=== PATIENT | male | born 1995 | race Caucasian/White ===

== ENCOUNTER 2016-10-18 17:55 | Emergency (ER) | payer OTHER ==
--- NOTE | 2016-10-18 18:37 | DIAGNOSTIC IMAGING REPORT ---
PROCEDURE: CT CERVICAL SPINE W/O CONTRAST CLINICAL INDICATION: TRAUMA/INJURY TECHNIQUE: Noncontrast axial images with sagittal and coronal reformations. COMPARISON: None. FINDINGS: Normal alignment without fracture. Normal disc spaces. No foraminal or spinal stenosis. Paraspinal soft tissues are unremarkable. Lung apices are clear. IMPRESSION: 1. Negative CT cervical spine 2. Results discussed with Selena Aguirre All CT scans at this facility use dose modulation, iterative reconstruction, and/or weight-based dosing when appropriate to reduce radiation dose to as low as reasonably achievable.
--- NOTE | 2016-10-18 18:37 | DIAGNOSTIC IMAGING REPORT ---
PROCEDURE: CT HEAD WITHOUT CONTRAST INDICATION: TRAUMA/INJURY TECHNIQUE: Noncontrast axial images with sagittal and coronal reformations. COMPARISON: None. FINDINGS: Sulci, ventricular system, and brain parenchyma are normal. Cavum septum pellucidum, a normal variant. No evidence of acute intracranial process. Visualized mastoids and sinuses are clear. IMPRESSION: 1. Negative non-enhanced head CT. 2. Findings discussed with Selena Aguirre at 06:34 p.m.[facility] Standard Time
--- NOTE | 2016-10-18 18:37 | DIAGNOSTIC IMAGING REPORT ---
PROCEDURE: CT HEAD WITHOUT CONTRAST INDICATION: TRAUMA/INJURY TECHNIQUE: Noncontrast axial images with sagittal and coronal reformations. COMPARISON: None. FINDINGS: Sulci, ventricular system, and brain parenchyma are normal. Cavum septum pellucidum, a normal variant. No evidence of acute intracranial process. Visualized mastoids and sinuses are clear. IMPRESSION: 1. Negative non-enhanced head CT. 2. Findings discussed with Selena Aguirre at 06:34 p.m.[facility] Standard Time
--- NOTE | 2016-10-18 19:17 | ED NURSING NOTES ---
Clinical Report - Nurses [facility] [place] [address] 10/18/2016 17:55 Patient: EMILIE DONAHUE TRIAGE Triage time 18:05 Oct 18 2016. Acuity: LEVEL 3. Chief Complaint: INJURY TO HEAD. Alert. EBONI COMA SCORE: Eboni Coma Scale: 15- eyes open spontaneously (4); best verbal response- oriented x 4 (5); best motor response- obeys commands (6). --18:19 Dano Denney R.N. 18:19 10/18/16. BP: 140/87. RR: 16. O2 saturation: 100%. Pain level now: 310. Additional comments: Head and (R) upper arm. --18:23 Dano Denney R.N. 18:19. --20:19 Dano Denney R.N. 20:18 10/18/16. HR: 88. --20:19 Dano Denney R.N. <<STRICKEN ENTRY-- 18:19. --20:20 Dano Denney R.N. --END STRIKE>> Correction --20:20 Dano Denney R.N. <<STRICKEN ENTRY-- 20:19 10/18/16. HR: 88. --20:20 Dano Denney R.N. --END STRIKE>> Correction. --20:20 Dano Denney R.N. <<STRICKEN ENTRY-- 18:19 10/18/16. HR: 86. --20:21 Dano Denney R.N. --END STRIKE>> Correction. --20:22 Dano Denney R.N. Weight: 75.7 kg measured. Height/Length: 72 inches. BMI: 22.7. --18:17 Dano Denney R.N. Medications Zyrtec, PRN. --20:17 Dano Denney R.N. Medication/allergy information source: the patient. --18:19 Dano Denney R.N. Allergies No Known Drug Allergy. --18:15 Dano Denney R.N. History Arrived by private vehicle. Historian: patient. Accompanied by family. Primary physician ([facility]). ( Head Injury after falling 6 feet from a ladder. Pt states that he fell to soil. Also injured his (R) upper arm. Seen at the [facility] today and they sent him here to be evaluated because of his continuing blurred vision.). This occurred yesterday. Mechanism of injury: fell. The patient had loss of consciousness. (pt denies but states that he had trouble focusing his mentation for 1/2 hour.). 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 PAST MEDICAL HX: Tetanus status: unknown. Immunizations: status is unknown. SURGERY HX: No history of previous surgery. FALL RISK ASSESSMENT: Fall risk assessment completed. No fall risk identified. NUTRITIONAL RISK ASSESSMENT: The nutritional risk assessment revealed no deficiencies. FUNCTIONAL ASSESSMENT: Functional assessment: no impairments noted. LEARNING NEEDS ASSESSMENT: The learning needs assessment revealed no barriers. --18:19 Dano Denney R.N. PROBLEMS: Migraine Headache. --18:16 Dano Denney R.N. ADDITIONAL SURGERIES: no known surgeries. Interventions ID band on patient. To treatment room. --18:19 Dano Denney R.N. PHYSICAL ASSESSMENT Ambulatory to room. GENERAL / NEURO / PSYCH: Alert. Appears in pain. HEENT: Head: abrasion present in the left forehead. Mouth within normal limits upon inspection. Voice within normal limits. No dental injury noted. Mucous membranes are pink. RESPIRATORY: Respirations not labored. CVS: Capillary refill less than 2 seconds. BACK: Vertebral point tenderness over the cervical spine ((R)). SKIN: Skin is warm and dry. --18:27 Dano Denney R.N. NURSING PROGRESS NOTES 18:15 10/18/2016 TDAP IM 0.5 mL given. (Lot#: [id number], expiration date: 09/21/2018, Consulting Solution Manager: sanofi pasteur). Given in the right deltoid. Allergies verified and confirmed 5 rights. Vaccine information statement provided to the patient. --18:15 Klever Martinez R.N. Reassurance given. Patient identifiers checked. Call light placed in reach. Side rails up. Bed placed in lowest position. Brakes of bed on. Patient ready for evaluation- chart flagged and ED physician notified. --18:27 Dano Denney R.N. 18:13 10/18/2016 Site #1 started via IV in the left antecubital space with an 18g angiocath, with aseptic technique and good blood return; one attempt. Blood drawn: rainbow set. Labeled in the presence of the patient and sent to the lab. Saline lock flushed with 10 mL saline. --18:28 Dano Denney R.N. 18:20 10/18/16. Patient transported to CT by stretcher with tech. --18:33 Dano Denney R.N. 18:30. Patient returned from CT by stretcher with tech. --18:33 Dano Denney R.N. 19:18 10/18/16. BP: 126/77. HR: 75. RR: 16. O2 saturation: 99% on room air. Pain level now: 6/10. Additional comments: Head pain. --19:19 Dano Denney R.N. 19:23 10/18/2016 K-DUR (Potassium Chloride Debora ER) PO Tablets 40 meq given. Allergies verified and confirmed 5 rights. --19:23 Dano Denney R.N. DISPOSITION / DISCHARGE 19:30 10/18/16. BP: 128/75. HR: 79 (regular and normal rate). RR: 17. O2 saturation: 99% on room air. Temp: 98.2 F. Pain level now: 7/10. Additional comments: Head pain. --20:12 Dano Denney R.N. Departure time: 1939. --20:12 Dano Denney R.N. 19:40. Condition at departure: improved. No learning barriers present. Reviewed warnings (Have someone check on your mental status every two hours checking for changes.). Reviewed medication(s) dosing information (prescription given to pt). Reviewed referral to family practice for followup. Patient verbalized understanding. Written instructions provided in Maori. The patient was discharged by the nurse practitioner. He was discharged home and accompanied by group account director. He left the Emergency Department ambulatory and via private vehicle. Purchasing Intern driving. FALL RISK ASSESSMENT: Fall risk assessment completed. No fall risk identified. --20:15 Dano Denney R.N. Locked/Released at 10/18/2016 20:26 by Dano Denney R.N.
--- NOTE | 2016-10-18 19:17 | ED CLINICAL REPORT ---
Clinical Report - Physicians/Mid Levels [facility] [address] [place] [address] 10/18/2016 17:55 Patient: EMILIE DONAHUE Time Seen: 1806; upon arrival, initial patient contact, initial documentation, patient care assumed. Arrived- By private vehicle. Historian- patient. HISTORY OF PRESENT ILLNESS Chief Complaint: FALL. Location of injuries- head, face, right arm and left leg. The injury occurred yesterday. Fell 5-6 feet off a ladder while standing and landed on the ground; slipped. Occurred at home. The patient complains of mild pain. The patient sustained a blow to the head and complains of neck pain. No loss of consciousness or seizure. Not dazed. (went to [facility], sent here for further eval). REVIEW OF SYSTEMS No numbness, dizziness, loss of vision, difficulty breathing or weakness. No headache, laceration or vomiting. He has no pain on weight bearing. All systems otherwise negative, except as recorded above. PAST HISTORY See nurses notes. PROBLEMS: Migraine Headache. --18:16 Dano Denney R.N. Tetanus immunization status is unknown. SOCIAL HISTORY Never smoker. No alcohol use or drug use. No recent travel. Is a local resident. FAMILY HISTORY No significant family medical history. ADDITIONAL NOTES The nursing notes have been reviewed with agreement regarding the chief complaint, HPI, ROS, PMH and patient medications and allergies. PHYSICAL EXAM Vital Signs: 10/18/2016 18:19 BP: 140/87. RR: 16. O2 saturation: 100%. Pain level now: 3/10. Have been reviewed as normal and appear to be correct. Appearance: Alert. Oriented X3. No acute distress. Head: Head non-tender. No swelling of head. Forehead: small abrasion of the upper central forehead. No erythema, tenderness, swelling, laceration or ecchymosis. No puncture wound, foreign body or deformity. Eyes: Pupils equal, round and reactive to light. EOM intact. ENT: No dental injury. Pharynx normal. Neck: Painful ROM in the neck. Pain in the neck upon movement. No decreased ROM or muscle spasm in the neck. Tenderness present. Mild vertebral tenderness of the mid and lower cervical spine. CVS: Heart sounds normal. Pulses normal. Respiratory: Breath sounds normal. Chest nontender. Abdomen: No visible injury. Soft and nontender. Back: No tenderness. ROM normal. Skin: Skin intact. Skin warm and dry. Normal skin color. Normal skin turgor. Extremities: Normal inspection. Right arm: small abrasion located in the medial aspect of arm. Neurovascular intact distally. No erythema, tenderness, swelling, laceration or ecchymosis. No puncture wound, foreign body or deformity. Pelvis stable. Left leg: small abrasion located in the anterior aspect of mid leg. Neurovascular intact distally. No erythema, tenderness, swelling, laceration or ecchymosis. No puncture wound, foreign body or deformity. No limitation of weight bearing. Extremities atraumatic. No lower extremity edema. Neuro: Oriented X 3. No motor deficit. No sensory deficit. LABS, X-RAYS, AND EKG CT Head: No acute disease. (IMPRESSION: 1. Negative non-enhanced head CT. 2. Findings discussed with Selena Aguirre at 06:34 p.m.[facility] Standard Time Electronically Final signed by:Itz Soliz MD 10/18/2016 6:37:22 PM). The study was interpreted by the radiologist and discussed with the radiologist. Interpretation time: 18:37. Note - Tests: (CT C Spine IMPRESSION: 1. Negative CT cervical spine 2. Results discussed with Selena Aguirre All CT scans at this facility use dose modulation, iterative reconstruction, and/or weight-based dosing when appropriate to reduce radiation dose to as low as reasonably achievable. Electronically Final signed by:Itz Soliz MD 10/18/2016 6:37:07 PM). PROGRESS AND PROCEDURES Patient counseled in person regarding the patient's stable condition, test results and diagnosis. Differential Diagnosis: Other possible considerations: fall, head injury, internal injury, fx, contusions, lacs, abrasions, sprains. Above considerations are based on history, physical exam, reassessment, laboratory data and other information. Differential diagnosis was discussed with patient. Disposition: Discharged home in good and unchanged condition (19:17). Condition: good and stable. CLINICAL IMPRESSION Single contusion with abrasion to the forehead. Fall from ladder and on same level by slipping. Multiple superficial abrasions to the forehead, right upper arm and left lower leg. Delayed treatment.No infection or abrasion with foreign body present. INSTRUCTIONS Protect wound and keep wound area clean. Soak in warm soapy water twice daily. Apply neosporin twice daily. Do not work today, tomorrow. Warnings: HEAD INJURY PRECAUTIONS: An observer must check on the patient frequently for the next 24 hours to confirm that the patient responds as expected, is not confused, has no new weakness or numbness, and has no other problems. TETANUS: You were given a tetanus shot during your visit. Make a note for future reference. GENERAL WARNINGS: Return or contact your physician immediately if your condition worsens or changes unexpectedly, if not improving as expected, or if other problems arise. trouble breathing, chest pain, abdominal pain. Prescription Medications: Flexeril 10 mg: Take 1 orally every 8 hours as needed for muscle spasm. Dispense twenty (20). No refills. Substitution is permissible. Ultram 50 mg tablets: take 1-2 orally every 6 hours as needed for pain. Dispense twenty (20). No refills. Substitution is permissible. Follow-up: Follow up with your doctor in about three days even if well. Call for an appointment. Summary of care provided to patient. Understanding of the discharge instructions verbalized by patient. (Electronically signed by Selena Aguirre A.R.N.P. 10/18/2016 20:34)
--- NOTE | 2016-10-18 19:17 | ED ORDER SUMMARY ---
..... Patient: EMILIE ODNAHUE OrderSheet [facility] VisitID: [id number] [address] [place] [address] 20y, M Registration Date/Time: 10/18/2016 ORDER SHEET Weight: 75.7 kg (measured) Allergies: No Known Drug Allergy GENERAL ORDERS: CT Cervical Spine wo Cont Urgent (18:16 10/18/2016 HBivens A.R.N.P.) (Ack 18:22 LNations ER Tech1) (18:29 JRomanelli R.N.) CT Head wo Cont Urgent (18:16 10/18/2016 HBivens A.R.N.P.) (Ack 18:22 LNations ER Tech1) (18:29 JRomanelli R.N.) CBC w Diff Urgent (18:16 10/18/2016 HBivens A.R.N.P.) (Ack 18:22 LNations ER Tech1) (18:29 JRomanelli R.N.) CMP Urgent (18:16 10/18/2016 HBivens A.R.N.P.) (Ack 18:22 LNations ER Tech1) (18:29 JRomanelli R.N.) Vitals (18:31 10/18/2016 HBivens A.R.N.P.) (19:17 JRomanelli R.N.) MEDICATION ORDERS: Tdap IM 0.5 mL (NOW, per protocol) (18:14 10/18/2016 JBoardley R.N. per protocol) (18:15 JBoardley R.N.) Tdap IM 0.5 mL (NOW, per protocol) (18:16 10/18/2016 HBivens A.R.N.P.) (Cancelled: Duplicate Order18:29 JRomanelli R.N.) K-Dur PO 40 meq (Do not crush or chew, NOW) (19:16 10/18/2016 HBivens A.R.N.P.) (19:23 JRomanelli R.N.) IV FLUIDS: IV Saline Lock (18:16 10/18/2016 HBivens A.R.N.P.) (18:28 JRomanelli R.N.) ORDER SHEET NOTES: [Electronically signed by Dano Denney R.N. (20:26 10/18/2016)] [Electronically signed by Selena Aguirre (20:34 10/18/2016)] [Electronically locked/signed by Dano Denney R.N. (20:10/18/2016)]
--- NOTE | 2016-10-18 19:17 | ED NURSING NOTES ---
Clinical Report - Nurses [facility] [place] [address] 10/18/2016 17:55 Patient: EMILIE DONAHUE TRIAGE Triage time 18:05 Oct 18 2016. Acuity: LEVEL 3. Chief Complaint: INJURY TO HEAD. Alert. EBONI COMA SCORE: Eboni Coma Scale: 15- eyes open spontaneously (4); best verbal response- oriented x 4 (5); best motor response- obeys commands (6). --18:19 Dano Denney R.N. 18:19 10/18/16. BP: 140/87. RR: 16. O2 saturation: 100%. Pain level now: 310. Additional comments: Head and (R) upper arm. --18:23 Dano Denney R.N. 18:19. --20:19 Dano Denney R.N. 20:18 10/18/16. HR: 88. --20:19 Dano Denney R.N. <<STRICKEN ENTRY-- 18:19. --20:20 Dano Denney R.N. --END STRIKE>> Correction --20:20 Dano Denney R.N. <<STRICKEN ENTRY-- 20:19 10/18/16. HR: 88. --20:20 Dano Denney R.N. --END STRIKE>> Correction. --20:20 Dano Denney R.N. <<STRICKEN ENTRY-- 18:19 10/18/16. HR: 86. --20:21 Dano Denney R.N. --END STRIKE>> Correction. --20:22 Dano Denney R.N. Weight: 75.7 kg measured. Height/Length: 72 inches. BMI: 22.7. --18:17 Dano Denney R.N. Medications Zyrtec, PRN. --20:17 Dano Denney R.N. Medication/allergy information source: the patient. --18:19 Dano Denney R.N. Allergies No Known Drug Allergy. --18:15 Dano Denney R.N. History Arrived by private vehicle. Historian: patient. Accompanied by family. Primary physician ([facility]). ( Head Injury after falling 6 feet from a ladder. Pt states that he fell to soil. Also injured his (R) upper arm. Seen at the [facility] today and they sent him here to be evaluated because of his continuing blurred vision.). This occurred yesterday. Mechanism of injury: fell. The patient had loss of consciousness. (pt denies but states that he had trouble focusing his mentation for 1/2 hour.). 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 PAST MEDICAL HX: Tetanus status: unknown. Immunizations: status is unknown. SURGERY HX: No history of previous surgery. FALL RISK ASSESSMENT: Fall risk assessment completed. No fall risk identified. NUTRITIONAL RISK ASSESSMENT: The nutritional risk assessment revealed no deficiencies. FUNCTIONAL ASSESSMENT: Functional assessment: no impairments noted. LEARNING NEEDS ASSESSMENT: The learning needs assessment revealed no barriers. --18:19 Dano Denney R.N. PROBLEMS: Migraine Headache. --18:16 Dano Denney R.N. ADDITIONAL SURGERIES: no known surgeries. Interventions ID band on patient. To treatment room. --18:19 Dano Denney R.N. PHYSICAL ASSESSMENT Ambulatory to room. GENERAL / NEURO / PSYCH: Alert. Appears in pain. HEENT: Head: abrasion present in the left forehead. Mouth within normal limits upon inspection. Voice within normal limits. No dental injury noted. Mucous membranes are pink. RESPIRATORY: Respirations not labored. CVS: Capillary refill less than 2 seconds. BACK: Vertebral point tenderness over the cervical spine ((R)). SKIN: Skin is warm and dry. --18:27 Dano Denney R.N. NURSING PROGRESS NOTES 18:15 10/18/2016 TDAP IM 0.5 mL given. (Lot#: [id number], expiration date: 09/21/2018, Optimization Analyst: sanofi pasteur). Given in the right deltoid. Allergies verified and confirmed 5 rights. Vaccine information statement provided to the patient. --18:15 Klever Martinez R.N. Reassurance given. Patient identifiers checked. Call light placed in reach. Side rails up. Bed placed in lowest position. Brakes of bed on. Patient ready for evaluation- chart flagged and ED physician notified. --18:27 Dano Denney R.N. 18:13 10/18/2016 Site #1 started via IV in the left antecubital space with an 18g angiocath, with aseptic technique and good blood return; one attempt. Blood drawn: rainbow set. Labeled in the presence of the patient and sent to the lab. Saline lock flushed with 10 mL saline. --18:28 Dano Denney R.N. 18:20 10/18/16. Patient transported to CT by stretcher with tech. --18:33 Dano Denney R.N. 18:30. Patient returned from CT by stretcher with tech. --18:33 Dano Denney R.N. 19:18 10/18/16. BP: 126/77. HR: 75. RR: 16. O2 saturation: 99% on room air. Pain level now: 6/10. Additional comments: Head pain. --19:19 Dano Denney R.N. 19:23 10/18/2016 K-DUR (Potassium Chloride Debora ER) PO Tablets 40 meq given. Allergies verified and confirmed 5 rights. --19:23 Dano Denney R.N. DISPOSITION / DISCHARGE 19:30 10/18/16. BP: 128/75. HR: 79 (regular and normal rate). RR: 17. O2 saturation: 99% on room air. Temp: 98.2 F. Pain level now: 7/10. Additional comments: Head pain. --20:12 Dano Denney R.N. Departure time: 1939. --20:12 Dano Denney R.N. 19:40. Condition at departure: improved. No learning barriers present. Reviewed warnings (Have someone check on your mental status every two hours checking for changes.). Reviewed medication(s) dosing information (prescription given to pt). Reviewed referral to family practice for followup. Patient verbalized understanding. Written instructions provided in Occitan. The patient was discharged by the nurse practitioner. He was discharged home and accompanied by on awake counselor. He left the Emergency Department ambulatory and via private vehicle. Sales Contract Administrator driving. FALL RISK ASSESSMENT: Fall risk assessment completed. No fall risk identified. --20:15 Dano Denney R.N. Locked/Released at 10/18/2016 20:26 by Dano Denney R.N.
--- NOTE | 2016-10-18 19:17 | ED ORDER SUMMARY ---
..... Patient: EMILIE DONAHUE OrderSheet [facility] VisitID: [id number] [address] [place] [address] 20y, M Registration Date/Time: 10/18/2016 ORDER SHEET Weight: 75.7 kg (measured) Allergies: No Known Drug Allergy GENERAL ORDERS: CT Cervical Spine wo Cont Urgent (18:16 10/18/2016 HBivens A.R.N.P.) (Ack 18:22 LNations ER Tech1) (18:29 JRomanelli R.N.) CT Head wo Cont Urgent (18:16 10/18/2016 HBivens A.R.N.P.) (Ack 18:22 LNations ER Tech1) (18:29 JRomanelli R.N.) CBC w Diff Urgent (18:16 10/18/2016 HBivens A.R.N.P.) (Ack 18:22 LNations ER Tech1) (18:29 JRomanelli R.N.) CMP Urgent (18:16 10/18/2016 HBivens A.R.N.P.) (Ack 18:22 LNations ER Tech1) (18:29 JRomanelli R.N.) Vitals (18:31 10/18/2016 HBivens A.R.N.P.) (19:17 JRomanelli R.N.) MEDICATION ORDERS: Tdap IM 0.5 mL (NOW, per protocol) (18:14 10/18/2016 JBoardley R.N. per protocol) (18:15 JBoardley R.N.) Tdap IM 0.5 mL (NOW, per protocol) (18:16 10/18/2016 HBivens A.R.N.P.) (Cancelled: Duplicate Order18:29 JRomanelli R.N.) K-Dur PO 40 meq (Do not crush or chew, NOW) (19:16 10/18/2016 HBivens A.R.N.P.) (19:23 JRomanelli R.N.) IV FLUIDS: IV Saline Lock (18:16 10/18/2016 HBivens A.R.N.P.) (18:28 JRomanelli R.N.) ORDER SHEET NOTES: [Electronically signed by Dano Denney R.N. (20:26 10/18/2016)] [Electronically signed by Selena Aguirre (20:34 10/18/2016)] [Electronically locked/signed by Dano Denney R.N. (20:10/18/2016)]
--- NOTE | 2016-10-18 20:35 | ED DISCHARGE INSTRUCTIONS ---
Patient: EMILIE DONAHUE General Instructions [facility] VisitID: [id number] [address] [place] [address] 20y, M Registration Date/Time: 10/18/2016 Single contusion with abrasion to the forehead. Fall from ladder and on same level by slipping. Multiple superficial abrasions to the forehead, right upper arm and left lower leg. Delayed treatment.No infection or abrasion with foreign body present. INSTRUCTIONS Protect wound and keep wound area clean. Soak in warm soapy water twice daily. Apply neosporin twice daily. Do not work today, tomorrow. Warnings: HEAD INJURY PRECAUTIONS: An observer must check on the patient frequently for the next 24 hours to confirm that the patient responds as expected, is not confused, has no new weakness or numbness, and has no other problems. TETANUS: You were given a tetanus shot during your visit. Make a note for future reference. GENERAL WARNINGS: Return or contact your physician immediately if your condition worsens or changes unexpectedly, if not improving as expected, or if other problems arise. trouble breathing, chest pain, abdominal pain. Prescription Medications: Flexeril 10 mg: Take 1 orally every 8 hours as needed for muscle spasm. Dispense twenty (20). No refills. Substitution is permissible. Ultram 50 mg tablets: take 1-2 orally every 6 hours as needed for pain. Dispense twenty (20). No refills. Substitution is permissible. Follow-up: Follow up with your doctor in about three days even if well. Call for an appointment. Summary of care provided to patient. Understanding of the discharge instructions verbalized by patient. ADDITIONAL INFORMATION Mechanical Fall You have had a fall today. It appears that the cause is mechanical. That means that you slipped, tripped or lost your balance. If your fall had been due to fainting or a seizure, further tests would be required. Home Care: Rest today and resume your normal activities when you are feeling back to normal. If you were injured during the fall, follow the advice from your doctor regarding care of your injury. You may use acetaminophen (Tylenol) or ibuprofen (Motrin, Advil) to control pain, unless another pain medicine was prescribed. [NOTE: If you have chronic liver or kidney disease or ever had a stomach ulcer or GI bleeding, talk with your doctor before using these medicines.] Fall Prevention: Was there anything that caused your fall that can be fixed, removed, or replaced? Make your home safe by keeping walkways clear of objects you may trip over. Use non-slip pads under rugs. Do not walk in poorly lit areas. Do not stand on chairs or wobbly ladders. Use caution when reaching overhead or looking upward. This position can cause a loss of balance. Be sure your shoes fit properly, have non-slip bottoms and are in good condition. Be cautious when going up and down curbs, and walking on uneven sidewalks. If your balance is poor, consider using a cane or walker. Stay as active as you can. Balance, flexibility, strength, and endurance all come from exercise. They all play a role in preventing falls. Follow Up with your doctor or as advised by our staff. Get Prompt Medical Attention if any of the following occur: Repeated mechanical falls, or unexplained falls Dizziness, fainting or seizure Severe headache Chest pain or shortness of breath Palpitations (very rapid or very slow or irregular heartbeat) Blood in vomit, stools (black or red color) Weakness of an arm or leg or one side of the face Difficulty with speech or vision Abrasions Abrasions are skin scrapes. Their treatment depends on how large and deep the abrasion is. Home Care: If you were given a bandage, change it once a day. If your bandage sticks to the wound, soak it in warm water until it loosens. Wash the area with soap and water to remove all the cream/ointment. You may do this in a sink, under a tub faucet or shower. Rinse off the soap and pat dry with a clean towel. Reapply cream/ointment according to your doctor's instructions. This will prevent infection and help prevent the bandage from sticking. Cover the wound with a fresh non-stick bandage (Telfa). Repeat steps 1 to 4 daily, or as directed by your doctor. If the bandage becomes wet or dirty, change it as soon as possible. You may use acetaminophen (Tylenol) or ibuprofen (Motrin, Advil) to control pain, unless another pain medicine was prescribed. [ NOTE : If you have chronic liver or kidney disease or ever had a stomach ulcer or GI bleeding, talk with your doctor before using these medicines.] Do not use ibuprofen in children under six months of age. Follow Up with your physician or this facility as directed by our staff. Most skin wounds heal within ten days. However, an infection may occur despite proper treatment. Therefore, look for the early signs of infection listed below. Get Prompt Medical Attention if any of the following occur: Increasing pain in the wound Increasing redness or swelling Pus coming from the wound Fever of 100.4F (38C) or higher, or as directed by your healthcare provider Facial Contusion (No Wake-Up) A facial contusion is a bruise with swelling and sometimes bleeding under the skin. The swelling should start to go down within two days. Although there may be no signs of a serious injury at this time, symptoms may appear later which could be a sign of a more serious problem. Therefore, watch for the warning signs below. Home care The following guidelines will help you care for your injury at home: If you have swelling of the face, apply an ice pack (ice cubes in a plastic bag, wrapped in a towel) for 20 minutes every 12 hours until the swelling starts to go down. If you have scrapes or cuts on your face, clean them daily with soap and water. Apply an antibiotic ointment or cream for the first few days to prevent infection. You may use acetaminophen or ibuprofen to control pain, unless another pain medicine was prescribed.If you have chronic liver or kidney disease or ever had a stomach ulcer or GI bleeding, talk with your doctor before using these medicines. Do not use ibuprofen in children under six months of age. For the next 24 hours: Do not take alcohol, sedatives or medicines that make you sleepy. Do not drive or operate machinery. Avoid strenuous activities. No lifting or straining. If you have had any symptoms of aconcussiontoday (nausea, vomiting, dizziness, confusion, headache, memory loss or if you were knocked out), do not return to sports or any activity that could result in another head injury until all symptoms are gone and you have been cleared by your doctor. A second head injury before fully recovering from the first one can lead to serious brain injury. Follow-up care Follow up with your doctor in one week or as directed. Note: Any X-rays or CT scans taken will be reviewed by a radiologist. You will be notified of any new findings that may affect your care. When to seek medical care Get prompt medical attention if any of the following occur: Repeated vomiting Severe or worsening headache or dizziness Unusual drowsiness, or unable to awaken as usual Confusion or change in behavior or speech, memory loss, blurred vision Convulsion (seizure) Increasing scalp or face swelling Redness, warmth or pus from the swollen area Fluid drainage or bleeding from the nose or ears Fever of 100.4F (38C) or higher, or as directed by your health care provider Increasing jaw pain with chewing or increasing pain in the sinuses Nose looks crooked or cannot breathe through your nose after swelling goes down Head Injury, No Wake-Up (Adult) You have had a head injury. It does not appear serious at this time. Symptoms of a more serious problem (concussion, bruising, or bleeding in the brain) may appear later. Therefore, watch for the WARNING SIGNS listed below. Home Care: Your healthcare provider will tell you whether its okay to drive. If so, you can drive yourself home. For the next day or so, be careful when driving or using heavy machinery until you are sure you have no delayed symptoms. During the next 24 hours someone must stay with you to check for the signs below. It is not necessary to stay awake or be awakened during the night. If you have swelling of the face or scalp, apply an ice pack (ice cubes in a plastic bag, wrapped in a towel) for 20 minutes. Do this every 1-2 hours until the swelling starts to go down. Do not use aspirin or ibuprofen (Motrin, Advil) after a head injury.You may use acetaminophen (Tylenol)to control pain, unless another pain medicine was prescribed. [NOTE: If you have chronic liver or kidney disease or ever had a stomach ulcer or GI bleeding, talk with your doctor before using these medicines.] For the next 24 hours: Do not take alcohol, sedatives or medicines that make you sleepy. Avoid strenuous activities. No lifting or straining. If you have had any symptoms of a concussion today (nausea, vomiting, dizziness, confusion, headache, memory loss or if you were knocked out), do not return to sports or any activity that could result in another head injury until all symptoms are gone and you have been cleared by your doctor. A second head injury before fully recovering from the first one can lead to serious brain injury. Follow Up with your doctor if symptoms are not improving after 24 hours, or as directed. [NOTE: A radiologist will review any X-rays or CT scans that were taken. We will notify you of any new findings that may affect your care.] Get Prompt Medical Attention if any of the followingWARNING SIGNS occur: Repeated vomiting Severe or worsening headache or dizziness Unusual drowsiness, or unable to awaken as usual Confusion or change in behavior or speech, memory loss, blurred vision Convulsion (seizure) Increasing scalp or face swelling Redness, warmth or pus from the swollen area Fluid drainage or bleeding from the nose or ears Diphtheria Toxoid Adsorbed, Pertussis Vaccine, Acellular (Adsorbed), Tetanus Toxoid, Adsorbed Suspension for injection What is this medicine? DIPHTHERIA and TETANUS TOXOIDS; PERTUSSIS VACCINE (dif THEER ee uh and TET n us TOK soids; per TUS everton tiwari SEEN) is used to prevent diphtheria, tetanus, and pertussis infections. How should I use this medicine? This vaccine is for injection into a muscle. It is given by a health resident care supervisor. A copy of Vaccine Information Statements will be given before each vaccination. Read this sheet carefully each time. The sheet may change frequently. Talk to your sifter and miller regarding the use of this vaccine in children. While the DTP vaccine may be given to children ages 6 weeks to 7 years and the Tdap vaccine may be given to children at least 10 years old, precautions do apply. What side effects may I notice from receiving this medicine? Side effects that you should report to your doctor or health resident care supervisor as soon as possible: allergic reactions like skin rash, itching or hives, swelling of the face, lips, or tongue breathing problems fever of 103 degrees F or more flu-like symptoms inconsolable crying infection pain, tingling, numbness in the hands or feet seizures swelling of arm or leg that was injected unusually weak or tired Side effects that usually do not require immediate medical attention (report these side effects to your doctor or health resident care supervisor if they continue or are bothersome): fussy, irritable loss of appetite fever of 102 degrees F or less pain, tenderness, redness, swelling, or a 'knot' at site where injected vomiting What may interact with this medicine? immune globulin medicines that suppress your immune function like adalimumab, anakinra, infliximab medicines to treat cancer medicines that treat or prevent blood clots like warfarin, enoxaparin, and dalteparin steroid medicines like prednisone or cortisone What if I miss a dose? It is important not to miss your dose. Call your doctor or health resident care supervisor if you are unable to keep an appointment. Where should I keep my medicine? This drug is given in a hospital or clinic and will not be stored at home. What should I tell my health care provider before I take this medicine? They need to know if you have any of these conditions: blood disorders like hemophilia fever or infection immune system problems neurologic disease seizures an unusual or allergic reaction to vaccines, thimerosal, latex, other medicines, foods, dyes, or preservatives or trying to get breast-feeding What should I watch for while using this medicine? See your health care provider for all shots of this vaccine as directed. To have protection from infection, you must have 3 shots of this vaccine plus boosters as needed. Tell your doctor right away if you have any serious or unusual side effects after getting this vaccine. Cyclobenzaprine Hydrochloride Oral tablet What is this medicine? CYCLOBENZAPRINE (sye kloe CHEIKH za preen) is a muscle relaxer. It is used to treat muscle pain, spasms, and stiffness. How should I use this medicine? Take this medicine by mouth with a glass of water. Follow the directions on the prescription label. If this medicine upsets your stomach, take it with food or milk. Take your medicine at regular intervals. Do not take it more often than directed. Talk to your sifter and miller regarding the use of this medicine in children. Special care may be needed. What side effects may I notice from receiving this medicine? Side effects that you should report to your doctor or health resident care supervisor as soon as possible: allergic reactions like skin rash, itching or hives, swelling of the face, lips, or tongue chest pain fast heartbeat hallucinations seizures vomiting Side effects that usually do not require medical attention (report to your doctor or health resident care supervisor if they continue or are bothersome): headache What may interact with this medicine? Do not take this medicine with any of the following medications: cisapride droperidol flecainide grepafloxacin halofantrine levomethadyl MAOIs like Carbex, Eldepryl, Marplan, Nardil, and Parnate nilotinib pimozide probucol sertindole This medicine may also interact with the following medications: abarelix alcohol contrast dyes dolasetron guanethidine medicines for cancer medicines for depression, anxiety, or psychotic disturbances medicines to treat an irregular heartbeat medicines used for sleep or numbness during surgery or procedure methadone octreotide ondansetron palonosetron phenothiazines like chlorpromazine, mesoridazine, prochlorperazine, thioridazine some medicines for infection like alfuzosin, chloroquine, clarithromycin, levofloxacin, mefloquine, pentamidine, troleandomycin tramadol vardenafil What if I miss a dose? If you miss a dose, take it as soon as you can. If it is almost time for your next dose, take only that dose. Do not take double or extra doses. Where should I keep my medicine? Keep out of the reach of children. Store at room temperature between 15 and 30 degrees C (59 and 86 degrees F). Keep container tightly closed. Throw away any unused medicine after the expiration date. What should I tell my health care provider before I take this medicine? They need to know if you have any of these conditions: heart disease, irregular heartbeat, or previous heart attack liver disease thyroid problem an unusual or allergic reaction to cyclobenzaprine, tricyclic antidepressants, lactose, other medicines, foods, dyes, or preservatives or trying to get breast-feeding What should I watch for while using this medicine? Check with your doctor or health resident care supervisor if your condition does not improve within 1 to 3 weeks. You may get drowsy or dizzy when you first start taking the medicine or change doses. Do not drive, use machinery, or do anything that may be dangerous until you know how the medicine affects you. Stand or sit up slowly. Your mouth may get dry. Drinking water, chewing sugarless gum, or sucking on hard candy may help. Tramadol Hydrochloride Oral tablet What is this medicine? TRAMADOL (TRA ma dole) is a pain reliever. It is used to treat moderate to severe pain in adults. How should I use this medicine? Take this medicine by mouth with a full glass of water. Follow the directions on the prescription label. If the medicine upsets your stomach, take it with food or milk. Do not take more medicine than you are told to take. Talk to your sifter and miller regarding the use of this medicine in children. Special care may be needed. What side effects may I notice from receiving this medicine? Side effects that you should report to your doctor or health resident care supervisor as soon as possible: allergic reactions like skin rash, itching or hives, swelling of the face, lips, or tongue breathing difficulties, wheezing confusion itching light headedness or fainting spells redness, blistering, peeling or loosening of the skin, including inside the mouth seizures Side effects that usually do not require medical attention (report to your doctor or health resident care supervisor if they continue or are bothersome): constipation dizziness drowsiness headache nausea, vomiting What may interact with this medicine? Do not take this medicine with any of the following medications: MAOIs like Carbex, Eldepryl, Marplan, Nardil, and Parnate This medicine may also interact with the following medications: alcohol or medicines that contain alcohol antihistamines benzodiazepines bupropion carbamazepine or oxcarbazepine clozapine cyclobenzaprine digoxin furazolidone linezolid medicines for depression, anxiety, or psychotic disturbances medicines for migraine headache like almotriptan, eletriptan, frovatriptan, naratriptan, rizatriptan, sumatriptan, zolmitriptan medicines for pain like pentazocine, buprenorphine, butorphanol, meperidine, nalbuphine, and propoxyphene medicines for sleep muscle relaxants naltrexone phenobarbital phenothiazines like perphenazine, thioridazine, chlorpromazine, mesoridazine, fluphenazine, prochlorperazine, promazine, and trifluoperazine procarbazine warfarin What if I miss a dose? If you miss a dose, take it as soon as you can. If it is almost time for your next dose, take only that dose. Do not take double or extra doses. Where should I keep my medicine? Keep out of the reach of children. Store at room temperature between 15 and 30 degrees C (59 and 86 degrees F). Keep container tightly closed. Throw away any unused medicine after the expiration date. What should I tell my health care provider before I take this medicine? They need to know if you have any of these conditions: brain tumor depression drug abuse or addiction head injury if you frequently drink alcohol containing drinks kidney disease or trouble passing urine liver disease lung disease, asthma, or breathing problems seizures or epilepsy suicidal thoughts, plans, or attempt; a previous suicide attempt by you or a family member an unusual or allergic reaction to tramadol, codeine, other medicines, foods, dyes, or preservatives or trying to get breast-feeding What should I watch for while using this medicine? Tell your doctor or health resident care supervisor if your pain does not go away, if it gets worse, or if you have new or a different type of pain. You may develop tolerance to the medicine. Tolerance means that you will need a higher dose of the medicine for pain relief. Tolerance is normal and is expected if you take this medicine for a long time. Do not suddenly stop taking your medicine because you may develop a severe reaction. Your body becomes used to the medicine. This does NOT mean you are addicted. Addiction is a behavior related to getting and using a drug for a non-medical reason. If you have pain, you have a medical reason to take pain medicine. Your doctor will tell you how much medicine to take. If your doctor wants you to stop the medicine, the dose will be slowly lowered over time to avoid any side effects. You may get drowsy or dizzy. Do not drive, use machinery, or do anything that needs mental alertness until you know how this medicine affects you. Do not stand or sit up quickly, especially if you are an older patient. This reduces the risk of dizzy or fainting spells. Alcohol can increase or decrease the effects of this medicine. Avoid alcoholic drinks. You may have constipation. Try to have a bowel movement at least every 2 to 3 days. If you do not have a bowel movement for 3 days, call your doctor or health resident care supervisor. Your mouth may get dry. Chewing sugarless gum or sucking hard candy, and drinking plenty of water may help. Contact your doctor if the problem does not go away or is severe. You have been given the following additional information: Fall, Mechanical Abrasion Facial Contusion, No Wakeup HEAD INJURY, No Wake-Up (Adult) Diphtheria Toxoid Adsorbed, Pertussis Vaccine, Acellular (Adsorbed), Tetanus Toxoid, Adsorbed Suspension for injection Cyclobenzaprine Hydrochloride Oral tablet Tramadol Hydrochloride Oral tablet Do not work today, tomorrow. (Electronically signed by Selena Aguirre A.R.N.P. 10/18/2016 20:34)
--- NOTE | 2016-10-18 20:35 | ED MAR SUMMARY ---
..... Medication Administration Record [address] [place] [address] Patient: EMILIE DONAHUE Visit ID: [id number] 20y, M Weight: 75.7 kg Height/Length: 72 in BMI: 22.7 ALLERGIES: No Known Drug Allergy Given 18:15 10/18/2016 Klever Martinez RGerald Medication Administered: TDAP [IM], Dose: 0.5 mL IM. Medication Ordered: Tdap IM 0.5 mL (NOW, per protocol). Given 19:23 10/18/2016 Dano Denney RArianaNAriana Medication Administered: K-DUR [PO] (POTASSIUM CHLORIDE HANS ER), Dose: 40 meq Tablets PO. Medication Ordered: K-Dur PO 40 meq (Do not crush or chew, NOW).
--- NOTE | 2016-10-18 20:35 | ED MED RECONCILIATION SUMMARY ---
Patient: EMILIE DONAHUE Medication Reconciliation Report [facility] VisitID: [id number] [address] [place] [address] 20y, M Registration Date/Time: 10/18/2016 Weight: 75.7 kg Height/Length: 72 in. BMI: 22.7 ALLERGIES: No Known Drug Allergy The patient's Home Medications are listed below: THE FOLLOWING MEDICATIONS NEED TO BE RECONCILED: YUMIKO Monteiro The source(s) of the original Home Medication information: patient The following Medications were given to the patient in the Emergency Department: TDAP [IM] IM 0.5 mL, administered: 10/18/2016 6:15:00 PM K-DUR [PO] PO 40 meq, administered: 10/18/2016 7:23:00 PM The following Medications were prescribed to the patient: Flexeril 10 mg: Take 1 orally every 8 hours as needed for muscle spasm. Dispense twenty (20). No refills. Substitution is permissible. -- Selena Aguirre, Amanda.R.N.P. Ultram 50 mg tablets: take 1-2 orally every 6 hours as needed for pain. Dispense twenty (20). No refills. Substitution is permissible. -- Selena Aguirre A.R.N.P.
--- NOTE | 2016-10-18 20:35 | ED MED RECONCILIATION SUMMARY ---
Patient: EMILIE DONAHUE Medication Reconciliation Report [facility] VisitID: [id number] [address] [place] [address] 20y, M Registration Date/Time: 10/18/2016 Weight: 75.7 kg Height/Length: 72 in. BMI: 22.7 ALLERGIES: No Known Drug Allergy The patient's Home Medications are listed below: THE FOLLOWING MEDICATIONS NEED TO BE RECONCILED: YUMIKO Monteiro The source(s) of the original Home Medication information: patient The following Medications were given to the patient in the Emergency Department: TDAP [IM] IM 0.5 mL, administered: 10/18/2016 6:15:00 PM K-DUR [PO] PO 40 meq, administered: 10/18/2016 7:23:00 PM The following Medications were prescribed to the patient: Flexeril 10 mg: Take 1 orally every 8 hours as needed for muscle spasm. Dispense twenty (20). No refills. Substitution is permissible. -- Selena Aguirre, Amanda.R.N.P. Ultram 50 mg tablets: take 1-2 orally every 6 hours as needed for pain. Dispense twenty (20). No refills. Substitution is permissible. -- Selena Aguirre A.R.N.P.
--- NOTE | 2016-10-18 20:35 | ED MAR SUMMARY ---
..... Medication Administration Record [facility] [address] [place] [address] Patient: EMILIE DONAHUE Visit ID: [id number] 20y, M Weight: 75.7 kg Height/Length: 72 in BMI: 22.7 ALLERGIES: No Known Drug Allergy Given 18:15 10/18/2016 Klever Martinez RGerald Medication Administered: TDAP [IM], Dose: 0.5 mL IM. Medication Ordered: Tdap IM 0.5 mL (NOW, per protocol). Given 19:23 10/18/2016 Dano Denney RArianaNAriana Medication Administered: K-DUR [PO] (POTASSIUM CHLORIDE HANS ER), Dose: 40 meq Tablets PO. Medication Ordered: K-Dur PO 40 meq (Do not crush or chew, NOW).
== END 2016-10-18 19:40 | disposition home or self-care (01) ==
LOC: ED SRH 17:55
DX: S00.83XA Contusion of other part of head, initial encounter (principal); S40.811A Abrasion of right upper arm, initial encounter; S80.812A Abrasion, left lower leg, initial encounter; W11.XXXA Fall on and from ladder, initial encounter; Y93.89 Activity, other specified; Y92.019 Unspecified place in single-family (private) house as the place of occurrence of the external cause; Y99.8 Other external cause status; Z23 Encounter for immunization
CPT/HCPCS: 90100; 95059